=== PATIENT | female | born 1950 | race Caucasian/White ===

== ENCOUNTER → 2016-10-28 | Outpatient (CLI) | payer MEDICARE, BC ==
--- NOTE | 2016-10-28 19:58 | BD ---
EXAMINATION TYPE: MG DEXA axial skeleton. DATE OF EXAM: 10/28/2016 8:41 AM COMPARISON: 2004 CLINICAL HISTORY: 66-year-old female vitamin D deficiency Height: 5'4 Weight: 118 FRAX RISK QUESTIONS: Alcohol (3 or more units per day): no Family History (Parent hip fracture): no Glucocorticoids (More than 3mos): no (Ex: prednisone, prednisolone, methylprednisolone, dexamethasone, and hydrocortisone). History of Fracture in Adulthood: no Secondary Osteoporosis: 1. Type 1 Diabetes: no 2. Hyperthyroidism: no 3. Menopause before 45: no 4. Malnutrition: no 5. Chronic liver disease: no Rheumatoid Arthritis: no Current Tobacco Use: no RISK FACTORS HISTORY OF: Postmenopausal woman: MEDICATIONS: Additional Medications: blood pressure, cholesterol, heart Additional History: vitamin D EXAM MEASUREMENTS: Bone mineral densitometry was performed using the [employer] System. Bone mineral density as measured about the Lumbar spine is: ----- L1-L4(G/cm2):0.964 T Score Values are as follows: ----- L2: -2.8 ----- L3: -1.3 ----- L4: -1.1 ----- L1-L4: -1.8 Bone mineral density has: Decreased -10% since study of: 07/30/2005 Bone mineral density about the R hip (g/cm2): 0.802 Bone mineral density about the L hip (g/cm2): 0.812 T Score values are as follows: -----R Neck: -1.7 -----L Neck: -1.6 -----R Intertrochanter: -2.5 -----L Intertrochanter: -2.4 Bone mineral density has: Decreased -14 .1% since study of: 07/30/2005 IMPRESSION: Osteoporosis as indicated by T score values within the lumbar spine. There is increased risk for fracture and therapy is usually indicated based on age. Rescreen in 1-2 y ears. NOTE: T-SCORE=SD OF THE YOUNG ADULT MEAN.
--- NOTE | 2016-10-29 08:53 | MM ---
Reason for exam: screening (asymptomatic). Last mammogram was performed 1 year and 2 months ago. History: Patient is postmenopausal. Cancelled Left US Needle Biopsy of the left breast, September 08, 2006. Took estrogen for 11 years beginning at age 47. Took progesterone for 11 years beginning at age 47. Physical Findings: A clinical breast exam by your physician is recommended on an annual basis and results should be correlated with mammographic findings. MG 3D Screening Mammo W/Cad Bilateral CC and MLO view(s) were taken. Prior study comparison: August 15, 2015, bilateral MG 3d screening mammo w/cad. August 19, 2014, right breast MG work up mamm w CAD RT. The breast tissue is extremely dense which could obscure a lesion on mammography. Finding: There are typically benign calcifications in the upper outer quadrant of the left breast. ASSESSMENT: Incomplete: need additional imaging evaluation, BI-RAD 0 RECOMMENDATION: Special view mammogram of the left breast. [facility] will attempt to contact patient to return for supplemental views.
== END | disposition home or self-care (01) ==
LOC: RADMAMWWP 08:04
PROVIDERS: ATTEND Internal Medicine Geriatric Medicine
DX: Z12.31 Encounter for screening mammogram for malignant neoplasm of breast (principal); M81.0 Age-related osteoporosis without current pathological fracture; E55.9 Vitamin D deficiency, unspecified
CPT/HCPCS: 77080; 77063; G0202

== ENCOUNTER → 2016-11-01 | Outpatient (CLI) | payer MEDICARE, BC ==
--- NOTE | 2016-11-04 06:57 | MM ---
Reason for exam: additional evaluation requested from abnormal screening. Last mammogram was performed less than 1 month ago. History: Patient is postmenopausal. Cancelled Left US Needle Biopsy of the left breast, September 08, 2006. Took estrogen for 11 years beginning at age 47. Took progesterone for 11 years beginning at age 47. Physical Findings: Nurse did not find any significant physical abnormalities on exam. MG 3D Work Up W/Cad LT LM, CC with magnification, and LM with magnification view(s) were taken of the left breast. Prior study comparison: October 28, 2016, bilateral MG 3d screening mammo w/cad. August 15, 2015, bilateral MG 3d screening mammo w/cad. Benign calcifications stable since 2012. These results were verbally communicated with the patient and result sheet given to the patient on 11/01/16. ASSESSMENT: Benign, BI-RAD 2 RECOMMENDATION: Return to routine screening mammogram schedule for both breasts.
== END | disposition home or self-care (01) ==
LOC: RADMAMWWP 15:38
PROVIDERS: ATTEND Internal Medicine Geriatric Medicine
DX: R92.8 Other abnormal and inconclusive findings on diagnostic imaging of breast (principal)
CPT/HCPCS: G0206; G0279

== ENCOUNTER → 2018-06-24 | Outpatient (CLI) | payer MEDICARE, BC ==
--- NOTE | 2018-06-26 14:06 | MM ---
Reason for exam: screening (asymptomatic). Last mammogram was performed 1 year and 8 months ago. History: Patient is postmenopausal. Cancelled Left US Needle Biopsy of the left breast, September 08, 2006. Took estrogen for 11 years beginning at age 47. Took progesterone for 11 years beginning at age 47. Physical Findings: A clinical breast exam by your physician is recommended on an annual basis and results should be correlated with mammographic findings. MG 3D Screening Mammo W/Cad Bilateral CC and MLO view(s) were taken. Prior study comparison: November 01, 2016, left breast MG 3d work up w/cad LT. October 28, 2016, bilateral MG 3d screening mammo w/cad. The breast tissue is heterogeneously dense. This may lower the sensitivity of mammography. No significant changes when compared with prior studies. ASSESSMENT: Benign, BI-RAD 2 RECOMMENDATION: Routine screening mammogram of both breasts in 1 year.
== END ==
LOC: RADMAMWWP 11:32
PROVIDERS: ATTEND Internal Medicine Geriatric Medicine
DX: Z12.31 Encounter for screening mammogram for malignant neoplasm of breast (principal)
CPT/HCPCS: 77063; 77067

== ENCOUNTER → 2018-11-02 | Outpatient (CLI) | payer MEDICARE, BC ==
--- NOTE | 2018-11-02 13:00 | BD ---
EXAMINATION TYPE: Axial Bone Density DATE OF EXAM: 11/02/2018 CLINICAL HISTORY: Age-related osteoporosis per order. Height: 63.5 Weight: 111 Comparison: Prior DEXA bone scan October 28, 2016 FRAX RISK QUESTIONS: Alcohol (3 or more units per day): no Family History (Parent hip fracture): no Glucocorticoids (More than 3mos): no (Ex: prednisone, prednisolone, methylprednisolone, dexamethasone, and hydrocortisone). History of Fracture in Adulthood: no Secondary Osteoporosis: 1. Type 1 Diabetes: no 2. Hyperthyroidism: no 3. Menopause before 45: no 4. Malnutrition: no 5. Chronic liver disease: no Rheumatoid Arthritis: no Current Tobacco Use: no RISK FACTORS HISTORY OF: Family History of Osteoporosis: mother Active: yes Diet low in dairy products/other sources of calcium: at least one serving a day Postmenopausal woman: yes Take estrogen and/or progesterone medications: not now How long: about age [age] Lost more than 2 inches in height since high school: 61 Frequent falls: no Poor Health: no Hyperparathyroidism: no Adrenal Insufficiency: no MEDICATIONS: Prednisone or other steroids: no Thyroid Medications: no Osteoporosis Medications: yes Which medication: Boniva How Long: a little over one year Additional Medications: blood pressure meds, cholesterol meds, multivitamin Additional History: EXAM MEASUREMENTS: Bone mineral densitometry was performed using the [employer] System. Bone mineral density as measured about the Lumbar spine is: ----- L1-L4(G/cm2): 1.035 T Score Values are as follows: ----- L2: -2.4 ----- L3: -0.7 ----- L4: -0.2 ----- L1-L4: -1.2 Bone mineral density has: Increased 8.0% since study of: 10/28/2016 Bone mineral density about the R hip (g/cm2): 0.805 Bone mineral density about the L hip (g/cm2): 0.803 T Score values are as follows: -----R Neck: -1.7 -----L Neck: -1.7 -----R Total: -1.6 -----L Total: -1.6 Bone mineral density has: Increased1.6 % since study of: 10/28/2016 IMPRESSION: Osteopenia (T Score between -2.5 and -1) remains present. There remains slightly increased risk of fracture and the patient may be considered for treatment. Re-Screen 2-5 years. NOTE: T-SCORE=SD OF THE YOUNG ADULT MEAN.
== END ==
LOC: RADBDWWP 07:54
PROVIDERS: ATTEND Internal Medicine Geriatric Medicine
DX: M85.80 Other specified disorders of bone density and structure, unspecified site (principal)
CPT/HCPCS: 77080

== ENCOUNTER → 2019-05-24 | Outpatient (CLI) | payer MEDICARE, BC ==
--- NOTE | 2019-05-24 11:32 | US ---
EXAMINATION TYPE: US abdomen complete DATE OF EXAM: 05/24/2019 COMPARISON: NONE CLINICAL HISTORY: R19.7 DIARRHEA. Weight loss EXAM MEASUREMENTS: Liver Length: 11.2 cm Gallbladder Wall: 0.2 cm CBD: 0.3 cm Spleen: 10.8 cm Right Kidney: 10.2 x 3.7 x 5.0 cm Left Kidney: 11.4 x 4.3 x 4.9 cm Pancreas: Obscured by bowel gas Liver: wnl Gallbladder: wnl Evidence for sonographic Mcdaniel's sign: No CBD: wnl as visualized, distal portion obscured by bowel gas Spleen: wnl Right Kidney: No hydronephrosis or masses seen Left Kidney: No hydronephrosis or masses seen Upper IVC: wnl Abd Aorta: Atherosclerotic changes visualized. Proximal portion is ectatic The liver is homogenous. The intrahepatic portion of the IVC and proximal abdominal aorta are within normal limits. There is no evidence of cholelithiasis. Common bile duct is unremarkable. The sple en is unremarkable. Kidneys are symmetric and free of hydronephrosis. No renal lesions are seen. IMPRESSION: No suspicious intra-abdominal mass is seen. Pancreas is obscured by bowel gas
== END | disposition home or self-care (01) ==
LOC: RADUSWWP 09:25
PROVIDERS: ATTEND Internal Medicine Geriatric Medicine
DX: R19.7 Diarrhea, unspecified (principal)
CPT/HCPCS: 76700

== ENCOUNTER → 2019-07-15 | Outpatient (CLI) | payer MEDICARE, BC ==
--- NOTE | 2019-07-16 11:37 | MM ---
Reason for exam: screening (asymptomatic). Last mammogram was performed 1 year and 1 month ago. History: Patient is postmenopausal. Cancelled Left US Needle Biopsy of the left breast, September 08, 2006. Took estrogen for 11 years beginning at age 47. Took progesterone for 11 years beginning at age 47. Physical Findings: A clinical breast exam by your physician is recommended on an annual basis and results should be correlated with mammographic findings. MG 3D Screening Mammo W/Cad Bilateral CC, MLO, and XCCL view(s) were taken. Prior study comparison: June 24, 2018, bilateral MG 3d screening mammo w/cad. November 01, 2016, left breast MG 3d work up w/cad LT. The breast tissue is heterogeneously dense. This may lower the sensitivity of mammography. There are benign appearing round calcifications bilaterally. There is no discrete abnormality. ASSESSMENT: Negative, BI-RAD 1 RECOMMENDATION: Routine screening mammogram of both breasts in 1 year.
== END | disposition home or self-care (01) ==
LOC: RADMAMWWP 14:28
PROVIDERS: ATTEND Internal Medicine Geriatric Medicine
DX: Z12.31 Encounter for screening mammogram for malignant neoplasm of breast (principal)
CPT/HCPCS: 77063; 77067

== ENCOUNTER 2019-09-03 07:58 | Day surgery (SDC) | payer MEDICARE, BC ==
[2019-09-01 12:19] VITALS: BMI 18.5
[~2019-09-03 07:58] MED LIST: LACTATED RINGERS 1,000 ML IV SCH; LIDOCAINE 1% 20 ML VIAL (10MG/ML) FOR IV START INTRADERMA PRN
[2019-09-03 08:23] VITALS: RESP 16; TEMP 98.1
[2019-09-03] MEDS ORDERED: PROPOFOL 10 MG/ML 20 ML VIAL IV ONE (08:56)
--- NOTE | 2019-09-03 09:13 | P.PCN ---
Date of Procedure: 09/03/19 Procedure(s) Performed: BRIEF HISTORY: Patient is a 69-year-old pleasant female scheduled for an elective colonoscopy as a part of evaluation of change in bowel habits for the last 6 months duration. She has been having intermittent episodes of diarrhea with bowel movements anywhere from 3-4 a day which are loose to watery in consistency and occasional explosive diarrhea. Her last colonoscopy was 7 years ago. PROCEDURE PERFORMED: Colonoscopy with biopsy. PREOPERATIVE DIAGNOSIS: Change in bowel habits/chronic diarrhea. IV sedation per Anesthesia. PROCEDURE: After informed consent was obtained, the patient, was brought into the endoscopy unit. IV sedation was administered by Anesthesia under continuous monitoring. Digital rectal examination was normal. Initially the Olympus CF-160 flexible video colonoscope was then inserted in the rectum, gradually advanced into the cecum without any difficulty. Careful examination was performed as the scope was gradually being withdrawn. Ileocecal valve and the appendiceal orifice were visualized and appeared normal. Prep was excellent. Mucosa of the cecum, ascending colon, transverse colon, descending colon, sigmoid colon, and rectum appeared normal. Random biopsies were done from ascending and descending colon to rule out microscopic/collagenous colitis Retroflexion was performed in the rectum and no lesions were seen. The patient tolerated the procedure well. IMPRESSION: Normal-appearing colon from rectum to cecum with no evidence of colitis or colorectal neoplasia. RECOMMENDATIONS: Findings of this examination were discussed with the patient as well as a family. She was advised to follow with the biopsy results. She can have a repeat scanning colonoscopy in 10 years. Meantime she was advised to use [id number] Imodium as needed for her symptoms.
[2019-09-03 09:32] VITALS: BP 136/74; PULSE 75
== END 2019-09-03 09:56 | disposition home or self-care (01) ==
LOC: ORWHC2ENDO 07:58
PROVIDERS: ATTEND Internal Medicine Gastroenterology
DX: K52.839 Microscopic colitis, unspecified (principal); R19.4 Change in bowel habit; I10 Essential (primary) hypertension; E78.5 Hyperlipidemia, unspecified; Z79.82 Long term (current) use of aspirin; Z79.899 Other long term (current) drug therapy
CPT/HCPCS: 88305; 88313; 45380; J2704

== ENCOUNTER 2020-11-06 09:24 | Emergency (ER) | payer MEDICARE, BC ==
[2020-11-06 09:38] VITALS: BP 111/74; PULSE 77; RESP 18; TEMP 99
--- NOTE | 2020-11-06 09:52 | ED ---
General Adult HPI - General Chief complaint: Extremity Injury, Lower Stated complaint: fall/foot pain Time Seen by Provider: 11/06/20 09:41 Source: patient, RN notes reviewed Mode of arrival: wheelchair Limitations: physical limitation - History of Present Illness Initial comments: Patient 70-year-old female presented to the emergency room today with chief complaint of pain to the right ankle 2 days. Patient does admit that she went to get up out of the chair when her ankle rolled. She does admit that she's had pain to the lateral aspect over the last 2 days. She does admit that she's been able to bear weight. There has been some swelling. Denies any other complaints or symptoms at this time. - Related Data Home Medications Medication Instructions Recorded Confirmed Aspirin 162 mg PO DAILY 04/11/14 09/01/19 Atorvastatin [Lipitor] 20 mg PO HS 04/11/14 09/01/19 Lisinopril [Prinivil] 5 mg PO HS 04/11/14 09/01/19 Metoprolol Tartrate [Lopressor] 25 mg PO HS 04/11/14 09/01/19 Ibandronate Sodium [Boniva] 150 mg PO QMONTH 09/01/19 09/01/19 Multivitamins, Thera [Multivitamin 1 tab PO DAILY 09/01/19 09/01/19 (formulary)] Hampton-3/Dha/Epa/Fish Oil [Fish Oil 1 each PO DAILY 09/01/19 09/01/19 500 mg Softgel] Allergies Allergy/AdvReac Type Severity Reaction Status Date / Time No Known Allergies Allergy Verified 11/06/20 09:38 Review of Systems ROS Statement: Those systems with pertinent positive or pertinent negative responses have been documented in the HPI. ROS Other: All systems not noted in ROS Statement are negative. Past Medical History Past Medical History: Hyperlipidemia, Hypertension, Myocardial Infarction ([place]) Additional Past Medical History / Comment(s): OCCASIONAL SWELLING IN JEREMI.ANKLES, weight loss. Last Myocardial Infarction Date:: 03/23/12 History of Any Multi-Drug Resistant Organisms: MRSA Date of last positivie culture/infection: 2016 MDRO Source:: armpits Past Surgical History: Heart Catheterization With Stent, Orthopedic Surgery, Tubal Ligation Additional Past Surgical History / Comment(s): HAD HEART CATH WITH 2 STENTS TO LEFT ANTERIOR DESCENDING ARTERY 03/23/12. RIGHT BUNIONECTONY Past Anesthesia/Blood Transfusion Reactions: No Reported Reaction Date of Last Stent Placement:: 03/23/12 Past Psychological History: No Psychological Hx Reported Smoking Status: Never smoker Past Alcohol Use History: Occasional Past Drug Use History: None Reported - Past Family History Mother Family Medical History: Cancer Additional Family Medical History / Comment(s): Skin General Exam - General Exam Comments Initial Comments: General: The patient is awake and alert, in no distress, and does not appear acutely ill. Neck: The neck is supple, there is no tenderness or JVD. Cardiovascular: There is a regular rate and rhythm. No murmur, rub or gallop is appreciated. Respiratory: Lungs are clear to auscultation, respirations are non-labored, breath sounds are equal. No wheezes, stridor, rales, or rhonchi. Musculoskeletal: Patient does have some mild swelling down to the right ankle. Does have tenderness in the ATFL. Mild tenderness over the fourth and fifth proximal metatarsals. Shows good range of motion. Sensations are intact. Pedal pulses 2+. Neurological: A&O x 3. CN II-XII intact, There are no obvious motor or sensory deficits. Coordination appears grossly intact. Speech is normal. Skin: Skin is warm and dry and no rashes or lesions are noted. Psychiatric: Normal mood and affect. Limitations: physical limitation Course Vital Signs 11/06/20 09:35 Temperature 99.0 F Pulse Rate 77 Respiratory 18 Rate Blood Pressure 111/74 O2 Sat by Pulse 97 Oximetry Medical Decision Making - Medical Decision Making Patient's x-ray reviewed and does show a nondisplaced fracture of the proximal fifth metatarsal. Patient has been placed in a posterior short leg OCL splint by myself. Neurovascular was rechecked and intact. Patient does state that she has crutches and walker at home that she can use to stay nonweightbearing is advised follow-up with advised return here to the emergency room symptoms increase worsen or for any other concerns. Disposition Clinical Impression: Foot fracture Disposition: HOME SELF-CARE Condition: Good Instructions (If sedation given, give patient instructions): Foot Fracture in Adults (ED) Additional Instructions: Please leave splint in place and follow-up orthopedics over the next 2 days. Continue to ice elevate the affected area. Return to emergency room for any other concerns. Is patient prescribed a controlled substance at d/c from ED?: No Referrals: Baudilio Boucher MD [Primary Care Provider] - 1-2 days Time of Disposition: 10:59
--- NOTE | 2020-11-06 10:28 | XR ---
EXAMINATION TYPE: XR ankle complete RT DATE OF EXAM: 11/06/2020 COMPARISON: NONE HISTORY: Pain TECHNIQUE: Frontal, lateral and oblique images of the right ankle are obtained. COMPARISON: None. FINDINGS: There is no acute fracture/dislocation evident. The joint spaces appear within normal espino its. Lateral soft tissue swelling noted. IMPRESSION: There is no acute fracture or dislocation seen.
--- NOTE | 2020-11-06 10:29 | XR ---
EXAMINATION TYPE: XR foot complete RT DATE OF EXAM: 11/06/2020 CLINICAL HISTORY: pain TECHNIQUE: Frontal, lateral and oblique images of the right foot are obtained. COMPARISON: None. FINDINGS: Minimally displaced fracture at the base of the fifth metatarsal. The joint spaces appear within normal limits. The overlying soft tissue appears unremarkable. IMPRESSION: Minimally displaced fracture at the base of the fifth metatarsal. ICD 10 closed FRACTURE, INITIAL EVALUATION
== END 2020-11-06 11:16 | disposition home or self-care (01) ==
LOC: EC 09:24
DX: S92.314A Nondisplaced fracture of first metatarsal bone, right foot, initial encounter for closed fracture (principal); I10 Essential (primary) hypertension; E78.5 Hyperlipidemia, unspecified; I25.2 Old myocardial infarction; Z79.899 Other long term (current) drug therapy; Z79.82 Long term (current) use of aspirin; X50.1XXA Overexertion from prolonged static or awkward postures, initial encounter
CPT/HCPCS: 29515; 99283

== ENCOUNTER → 2020-11-28 | Outpatient (CLI) | payer MEDICARE, BC ==
--- NOTE | 2020-11-28 17:54 | BD ---
EXAMINATION TYPE: Axial Bone Density DATE OF EXAM: 11/28/2020 COMPARISON: NONE CLINICAL HISTORY: Height: 5 FT 4 IN Weight: 111 FRAX RISK QUESTIONS: Alcohol (3 or more units per day): NO Family History (Parent hip fracture): UNSURE Glucocorticoids (More than 3mos): NO (Ex: prednisone, prednisolone, methylprednisolone, dexamethasone, and hydrocortisone). History of Fracture in Adulthood: YES Secondary Osteoporosis: 1. Type 1 Diabetes: NO 2. Hyperthyroidism: NO 3. Menopause before 45: NO 4. Malnutrition: NO 5. Chronic liver disease: NO Rheumatoid Arthritis: NO Current Tobacco Use: NO RISK FACTORS HISTORY OF: Family History of Osteoporosis: YES Active: YES Diet low in dairy products/other sources of calcium: NO Postmenopausal woman: LATE 40'S Take estrogen and/or progesterone medications: TOOK HRT FROM AROUND AGE [age] Lost more than 2 inches in height since high school: NO MEDICATIONS: Osteoporosis Medications: YES Which medication: BONIVA How Lon-2 YRS Additional Medications: BONIVA,LISINOPRIL,METOPROLOL Additional History: RT FOOT FX 2020 EXAM MEASUREMENTS: Bone mineral densitometry was performed using the [employer] System. Bone mineral density as measured about the Lumbar spine is: ----- L1-L4(G/cm2): 1.064 T Score Values are as follows: ----- L2: -2.2 ----- L3: -0.5 ----- L4: -0.1 ----- L1-L4: -1.0 Bone mineral density has: INCREASED 1.9 % since study of: 2018 Bone mineral density about the R hip (g/cm2): 0.888 Bone mineral density about the L hip (g/cm2): 0.821 T Score values are as follows: -----R Neck: -1.1 -----L Neck: -1.6 -----R Total: -1.5 -----L Total: -1.5 Bone mineral density has: INCREASED 1.5 % since study of: 2019 IMPRESSION: Osteopenia (T Score between -2.5 and -1). There is slightly increased risk of fracture and the patient may be considered for treatment. Re-Screen 2-5 years. NOTE: T-SCORE=SD OF THE YOUNG ADULT MEAN.
== END | disposition home or self-care (01) ==
LOC: RADBDWWP 08:07
PROVIDERS: ATTEND Internal Medicine Geriatric Medicine
DX: M85.80 Other specified disorders of bone density and structure, unspecified site (principal)
CPT/HCPCS: 77080

== ENCOUNTER → 2021-03-22 | Outpatient (CLI) | payer MEDICARE, BC ==
--- NOTE | 2021-03-22 11:44 | MM ---
Reason for exam: screening (asymptomatic). Last mammogram was performed 1 year and 8 months ago. History: Patient is postmenopausal. Cancelled Left US Needle Biopsy of the left breast, September 08, 2006. Took estrogen for 11 years beginning at age 47. Took progesterone for 11 years beginning at age 47. Physical Findings: A clinical breast exam by your physician is recommended on an annual basis and results should be correlated with mammographic findings. MG 3D Screening Mammo W/Cad Bilateral CC and MLO view(s) were taken. Prior study comparison: July 15, 2019, bilateral MG 3d screening mammo w/cad. June 24, 2018, bilateral MG 3d screening mammo w/cad. The breast tissue is heterogeneously dense. This may lower the sensitivity of mammography. ASSESSMENT: Negative, BI-RAD 1 RECOMMENDATION: Routine screening mammogram of both breasts in 1 year.
== END | disposition home or self-care (01) ==
LOC: RADMAMWWP 07:56
PROVIDERS: ATTEND Internal Medicine Geriatric Medicine
DX: Z12.31 Encounter for screening mammogram for malignant neoplasm of breast (principal); Z78.0 Asymptomatic menopausal state
CPT/HCPCS: 77063; 77067

== ENCOUNTER → 2022-05-28 | Outpatient (CLI) | payer MEDICARE, BC ==
--- NOTE | 2022-05-28 10:54 | MM ---
Reason for Exam: Additional evaluation requested from abnormal screening. Last screening mammogram was performed less than 1 month ago. Patient History: Menarche at age 11. First Full-Term at age 26. Hysterectomy at age 47. Postmenopausal. Estrogen for 11 years from age 47 until age 58. Progesterone for 11 years from age 47 until age 58. 09/08/2006, Cancelled Left US Needle Biopsy on the left side. Risk Values: Lolis 5 year model risk: 2.0%. NCI Lifetime model risk: 4.8%. Prior Study Comparison: 11/01/2016 Left Diagnostic Mammogram, [facility]. 06/24/2018 Bilateral Screening Mammogram, [facility]. 07/15/2019 Bilateral Screening Mammogram, [facility]. 03/22/2021 Bilateral Screening Mammogram, [facility]. 05/22/2022 Bilateral MG 3D screening mammo w/cad, [facility]. Tissue Density: Right: The breast tissue is heterogeneously dense. This may lower the sensitivity of mammography. Analyzed By CAD. Overall Assessment: Negative, BI-RAD 1 Management: Screening Mammogram of both breasts in 1 year. Electronically signed and approved by: Shan Schuster D.O.
== END | disposition home or self-care (01) ==
LOC: RADMAMWWP 09:01
PROVIDERS: ATTEND Internal Medicine Geriatric Medicine
DX: R92.8 Other abnormal and inconclusive findings on diagnostic imaging of breast (principal); Z78.0 Asymptomatic menopausal state
CPT/HCPCS: 77065; G0279; 77061

== ENCOUNTER → 2023-06-05 | Outpatient (CLI) | payer MEDICARE, BC ==
--- NOTE | 2023-06-05 19:49 | BD ---
EXAMINATION TYPE: Axial Bone Density DATE OF EXAM: 06/05/2023 CLINICAL HISTORY: 72 years old Female. ICD-10 CODE: M81.0 Height: 62.8 Weight: 106 FRAX RISK QUESTIONS: Family History (Parent hip fracture): yes History of Fracture in Adulthood: yes RISK FACTORS HISTORY OF: Family History of Osteoporosis: yes Diet low in dairy products/other sources of calcium: yes Postmenopausal woman: 46 yrs old Take estrogen and/or progesterone medications: for 11 yrs in the past. Hyperparathyroidism: no Adrenal Insufficiency: no MEDICATIONS: Osteoporosis Medications: yes, boniva...3-4 yrs has stopped taking now. Additional Medications: bp meds, statin for cholesterol, vit d, aspirin, Additional History: adult foot fracture, cholesterol, hypertension, osteopenia, EXAM MEASUREMENTS: Bone mineral densitometry was performed using the [employer] System. Bone mineral density as measured about the Lumbar spine is: ----- L1-L4(G/cm2): 0.937 T Score Values are as follows: ----- L1: -2.5 ----- L2: -2.7 ----- L3: -0.7 ----- L4: -2.6 ----- L1-L4: -2.0 Z Score Values are as follows: ----- L1: -0.2 ----- L2: -0.4 ----- L3: 1.6 ----- L4: -0.3 ----- L1-L4: 0.3 Bone mineral density has: Decreased -11.9% since study of: 11.28.2020 Bone mineral density about the R hip (g/cm2): 0.774 Bone mineral density about the L hip (g/cm2): 0.770 T Score values are as follows: -----R Neck: -2.0 -----L Neck: -2.0 -----R Total: -1.9 -----L Total: -1.9 Z Score values are as follows: -----R Neck: 0.3 -----L Neck: 0.3 -----R Total: 0.3 -----L Total: 0.2 Bone mineral density has: Decreased -5.4% since study of: 11.28.2020 FRAX%s: The graph provided illustrates a 29.3% chance for a major osteoporotic fx and a 17.6% chance for the hips probability for fx in 10 years time. IMPRESSION: Osteopenia (T Score between -2.5 and -1). There is slightly increased risk of fracture and the patient may be considered for treatment. Re-Screen 2-5 years. NOTE: T-SCORE=SD OF THE YOUNG ADULT MEAN.
--- NOTE | 2023-06-06 08:51 | MM ---
Reason for Exam: Screening (asymptomatic). Last mammogram was performed 1 year(s) and 1 month(s) ago. Patient History: Menarche at age 11. First Full-Term at age 26. Hysterectomy at age 47. Postmenopausal. Patient has history of breast feeding. Estrogen for 11 years from age 47 until age 58. Progesterone for 11 years from age 47 until age 58. 09/08/2006, Cancelled Left US Needle Biopsy on the left side. Risk Values: Lolis 5 year model risk: 2.0%. NCI Lifetime model risk: 4.5%. Prior Study Comparison: 03/22/2021 Bilateral Screening Mammogram, [facility]. 05/22/2022 Bilateral MG 3D screening mammo w/cad, [facility]. 05/28/2022 Right MG 3D work up w/cad RT, [facility]. Tissue Density: The breast tissue is heterogeneously dense. This may lower the sensitivity of mammography. Findings: Analyzed By CAD. Groups consultations right breast lateral aspect 8.9 cm nipple and 4.1 cm nipple in the lateral and posterior nipple line respectively. Not well appreciated on MLO view. Left breast There is no suspicious group of microcalcifications or new suspicious mass. Overall Assessment: Incomplete: need additional imaging evaluation, BI-RAD 0 Management: Diagnostic Mammogram of the right breast. [facility] will attempt to contact patient to return for supplemental views and ultrasound if indicated. Patient should continue monthly self-breast exams. A clinical breast exam by your physician is recommended on an annual basis. This exam should not preclude additional follow-up of suspicious palpable abnormalities. Note on Lolis scores and lifetime risk: 1. A Lolis score greater than 3% is considered moderate risk. If this is the case, consider specialist referral to assess eligibility for a risk reducing agent. 2. If overall lifetime risk for the development of breast cancer is 20% or higher, the patient may qualify for future screening with alternating mammogram and breast MRI. Electronically signed and approved by: Kalpesh Liz DO
== END | disposition home or self-care (01) ==
LOC: RADMAMWWP 08:36
PROVIDERS: ATTEND Internal Medicine Geriatric Medicine
DX: Z12.31 Encounter for screening mammogram for malignant neoplasm of breast (principal); M81.0 Age-related osteoporosis without current pathological fracture; M85.89 Other specified disorders of bone density and structure, multiple sites; Z78.0 Asymptomatic menopausal state
CPT/HCPCS: 77063; 77067; 77080

== ENCOUNTER → 2023-06-18 | Outpatient (CLI) | payer MEDICARE, BC ==
--- NOTE | 2023-06-18 09:59 | MM ---
Reason for Exam: Additional evaluation requested from abnormal screening. Last screening mammogram was performed less than 1 month ago. Patient History: Menarche at age 11. First Full-Term at age 26. Hysterectomy at age 47. Postmenopausal. Patient has history of breast feeding. Estrogen for 11 years from age 47 until age 58. Progesterone for 11 years from age 47 until age 58. 09/08/2006, Cancelled Left US Needle Biopsy on the left side. Risk Values: Lolis 5 year model risk: 2.0%. NCI Lifetime model risk: 4.5%. Tissue Density: Right: The breast tissue is heterogeneously dense. This may lower the sensitivity of mammography. Analyzed By CAD. Overall Assessment: Suspicious, BI-RAD 4 Management: Stereotactic Core Biopsy Electronically signed and approved by: Josue Mims D.O. Radiologis
== END | disposition home or self-care (01) ==
LOC: RADMAMWWP 08:26
PROVIDERS: ATTEND Internal Medicine Geriatric Medicine
DX: R92.8 Other abnormal and inconclusive findings on diagnostic imaging of breast (principal); Z78.0 Asymptomatic menopausal state
CPT/HCPCS: 77065; G0279; 77061

== ENCOUNTER → 2023-07-17 | Day surgery (SDC) | payer MEDICARE, BC ==
[2023-07-17 07:39] VITALS: RESP 16; TEMP 97.6
--- NOTE | 2023-07-17 08:16 | P.GSHP ---
History of Present Illness H&P Date: 07/17/23 Chief Complaint: Abnormal right breast mammogram Isabel is a 73-year-old white female seen in consultation for Dr. Boucher regarding an abnormal right breast mammogram. She had a bilateral screening mammogram performed on 97 this revealed some questionable lesions in the right breast and a diagnostic mammogram was recommended. No lesions of concern were noted in the left breast. [place] [address]. This revealed a small group of calcifications in the upper outer right breast. Additionally a small group of calcifications have been present previously in the upper outer posterior right breast. The new group of calcifications were felt to be suspicious and stereotactic core biopsy was recommended. She does not feel any new lumps masses or notches of concern in either breast. She has never had any breast biopsies or surgery on her breast. She has not had any recent trauma or infection in her breast. Caffeine: 1 cup/day nicotine:never smoker chocolate: daily BCP: used for about 5 years hormones: none Family History: maternal grandmother: "female" cancer Hormonal History: menarche: 11 , breast fed: no, age at first : 35 menopause: 42 Surgical History: 2 cardiac stints tubaligation foot surgery Medical History: baby aspirin 2 daily vitamin D metaprolol lisonipril statin [place] in past Social History: nicotine: none alcohol: occasional drugs: none - Constitutional Constitutional: Denies chills, Denies fever - EENT Eyes: denies blurred vision, denies pain Ears: deny: decreased hearing, tinnitus Ears, nose, mouth and throat: Denies headache, Denies sore throat - Breasts Breasts: bilateral: as per HPI - Cardiovascular Cardiovascular: Reports shortness of breath, Denies chest pain - Respiratory Respiratory: Denies cough, Denies 7 - Gastrointestinal Gastrointestinal: Denies abdominal pain, Denies diarrhea, Denies nausea, Denies vomiting - Genitourinary (Female) Genitourinary: Denies dysuria, Denies hematuria - Menstruation Menstruation: Reports postmenopausal - Musculoskeletal Musculoskeletal: Denies myalgias - Integumentary Integumentary: Denies pruritus, Denies rash - Neurological Neurological: Denies numbness, Denies weakness - Psychiatric Psychiatric: Denies anxiety, Denies depression - Endocrine Endocrine: Denies fatigue, Denies weight change - Hematologic/Lymphatic Comment: none - Allergic/Immunologic Allergic/Immunologic: Reports as per HPI Past Medical History Past Medical History: Hyperlipidemia, Hypertension, Myocardial Infarction ([place]) Additional Past Medical History / Comment(s): OCCASIONAL SWELLING IN JEREMI.ANKLES, weight loss. Last Myocardial Infarction Date:: 03/23/12 History of Any Multi-Drug Resistant Organisms: MRSA Date of last positivie culture/infection: 2016 MDRO Source:: armpits Past Surgical History: Heart Catheterization With Stent, Orthopedic Surgery, Tubal Ligation Additional Past Surgical History / Comment(s): HAD HEART CATH WITH 2 STENTS TO LEFT ANTERIOR DESCENDING ARTERY 03/23/12. RIGHT BUNIONECTONY Past Anesthesia/Blood Transfusion Reactions: No Reported Reaction Date of Last Stent Placement:: 03/23/12 Past Psychological History: No Psychological Hx Reported Smoking Status: Never smoker Past Alcohol Use History: Occasional Past Drug Use History: None Reported - Past Family History Mother Family Medical History: Cancer Additional Family Medical History / Comment(s): Skin Medications and Allergies Home Medications Medication Instructions Recorded Confirmed Type Aspirin 81 mg PO DAILY 04/11/14 07/17/23 History Atorvastatin [Lipitor] 20 mg PO HS 04/11/14 07/17/23 History Lisinopril [Prinivil] 5 mg PO HS 04/11/14 07/17/23 History Metoprolol Tartrate [Lopressor] 25 mg PO HS 04/11/14 07/17/23 History Multivitamins, Thera [Multivitamin 1 tab PO DAILY 09/01/19 07/17/23 History (formulary)] Allergies Allergy/AdvReac Type Severity Reaction Status Date / Time No Known Allergies Allergy Verified 07/17/23 07:40 Surgical - Exam Vital Signs Temp Pulse Resp BP 97.6 F 78 16 114/75 07/17/23 07:24 07/17/23 07:24 07/17/23 07:24 07/17/23 07:24 - General no distress - Eyes normal ocular movement - ENT no hearing loss - Neck trachea midline - Respiratory normal respiratory effort, clear to auscultation - Cardiovascular Heart Sounds: normal: S1, S2 - Abdomen Abdomen: soft, non tender, no guarding, no rigid, no rebound - Integumentary normal turgor - Neurologic no disoriented, no combative - Musculoskeletal normal gait, normal posture - Psychiatric oriented to time, oriented to person, oriented to place, speech is normal, memory intact Breast Exam: BRA: 36B Inspection: 36B Patient: Right breast: Multi-positional exam no dominant masses or nodules of concern Right axilla: No adenopathy of concern Left breast: Multiple position with exam fibrocystic changes no dominant masses or nodules of concern Left axilla: No adenopathy of concern Results Mammogram reviewed with Dr. Liz from radiology; faint microcalcifications right breast seen only on CC view Assessment and Plan Assessment: Impression: Radiographic abnormality right breast, microcalcifications of concern seen only on CC view second areas of faint microcalcifications which were there previously no lesions of concern in left breast Cardiac history Plan: Attempt at stereotactic core biopsy right breast new group of microcalcifications Risk and benefits of the procedure are discussed with the patient. Risks include but are not limited to bleeding, infection, reaction to the anesthetic. If the calcifications cannot be seen well then we will do a repeat 6 month mammogram. If the biopsy were to be discordant and needle local excision may be necessary in the future. Patient understands and wishes to proceed. CC: Dr. Boucher
[2023-07-17 09:15] VITALS: BP 154/84; PULSE 73
--- NOTE | 2023-07-18 12:44 | MM ---
Date of Procedure: 07/17/23 Preoperative Diagnosis: Microcalcifications of concern right breast Postoperative Diagnosis: Same Procedure(s) Performed: Right breast stereotactic core biopsy Anesthesia: local Surgeon: Estefani Russo Pathology: other (Breast tissue/radiograph of specimen reveals microcalcifications) Condition: stable Disposition: same day Indications for Procedure: New onset microcalcifications of concern right breast Operative Findings: Radiograph of the specimen reveals microcalcifications Description of Procedure: The patient is a 73-year-old white female who underwent a routine screening mammogram was noted to have microcalcifications of concern in her right breast. These were new and a stereotactic core biopsy was recommended. Nothing was felt on examination. Risks and benefits of the procedure were discussed with the patient and she wished to proceed. The patient was brought to the stereotactic core biopsy room. She was positioned in the stereo upright chair. A party plan sales host/hostess film was obtained. The area of concern was identified. This was reviewed with radiology. The calcifications were very faint but it was felt the area of concern was identified. The lesion was targeted. The breast was prepped using chlorhexidine. 20 mL of 1% lidocaine were used to anesthetize the area of concern. A 9-gauge vacuum- assisted Petit biopsy needle was driven to the correct coordinates. A prefire film was obtained. The needle was noted to be in the correct location. The needle was fired. 24 specimens were obtained. Radiograph of the specimens revealed microcalcifications. It was felt that the area of concern been adequately sampled. A secure veronica bowtie clip was left in place. This appeared to be in the correct location. The patient tolerated the procedure in stable condition. Specimen is sent to pathology. The patient will follow-up with Dr. Chiang next week. SOWMYA
--- NOTE | 2023-07-18 14:02 | MM ---
Date of Procedure: 07/17/23 Preoperative Diagnosis: Microcalcifications of concern right breast Postoperative Diagnosis: Same Procedure(s) Performed: Right breast stereotactic core biopsy Anesthesia: local Surgeon: Estefani Russo Pathology: other (Breast tissue/radiograph of specimen reveals microcalcifications) Condition: stable Disposition: same day Indications for Procedure: New onset microcalcifications of concern right breast Operative Findings: Radiograph of the specimen reveals microcalcifications Description of Procedure: The patient is a 73-year-old white female who underwent a routine screening mammogram was noted to have microcalcifications of concern in her right breast. These were new and a stereotactic core biopsy was recommended. Nothing was felt on examination. Risks and benefits of the procedure were discussed with the patient and she wished to proceed. The patient was brought to the stereotactic core biopsy room. She was positioned in the stereo upright chair. A bevel face stoner and polisher film was obtained. The area of concern was identified. This was reviewed with radiology. The calcifications were very faint that this was felt to be the area of concern. The lesion was targeted. The breast was prepped using chlorhexidine. 20 mL of 1% lidocaine were used to anesthetize the area of concern. A 9-gauge vacuum-assisted Petit biopsy needle was driven to the correct coordinates. A prefire film was obtained. The needle was noted to be in the correct location. The needle was fired. 24 specimens were obtained. Radiograph of the specimens revealed microcalcifications. It was felt that the area of concern about been adequately sampled. A secure veronica bowtie clip was left in place. This appeared to be in the correct location. The patient tolerated the procedure in stable condition. Specimen is sent to pathology. The patient will follow-up with Dr. Chiang next week. SOWMYA
== END ==
LOC: RADMAMWWP 07:12
PROVIDERS: ATTEND Surgery
DX: R92.8 Other abnormal and inconclusive findings on diagnostic imaging of breast (principal); I25.2 Old myocardial infarction; I10 Essential (primary) hypertension; F10.90 Alcohol use, unspecified, uncomplicated; E78.5 Hyperlipidemia, unspecified; Z98.51 Tubal ligation status; Z98.890 Other specified postprocedural states; Z79.82 Long term (current) use of aspirin; Z79.899 Other long term (current) drug therapy
CPT/HCPCS: 88305; 19081; A4648; J2001

== ENCOUNTER → 2023-07-17 | Outpatient (CLI) | payer MEDICARE, BC ==
[2023-07-17 07:59] VITALS: BP 127/87; PULSE 77; RESP 8; TEMP 98
--- NOTE | 2023-07-17 08:55 | P.PCN ---
Date of Procedure: 07/17/23 Preoperative Diagnosis: Microcalcifications of concern right breast Postoperative Diagnosis: Same Procedure(s) Performed: Right breast stereotactic core biopsy Anesthesia: local Surgeon: Estefani Russo Pathology: other (Breast tissue/radiograph of specimen reveals microcalcifications) Condition: stable Disposition: same day Indications for Procedure: New onset microcalcifications of concern right breast Operative Findings: Radiograph of the specimen reveals microcalcifications Description of Procedure: The patient is a 73-year-old white female who underwent a routine screening mammogram was noted to have microcalcifications of concern in her right breast. These were new and a stereotactic core biopsy was recommended. Nothing was felt on examination. Risks and benefits of the procedure were discussed with the patient and she wished to proceed. The patient was brought to the stereotactic core biopsy room. She was positioned in the stereo upright chair. A manager drug safety film was obtained. The area of concern was identified. This was reviewed with radiology. The calcifications were very faint that this was felt to be the area of concern. The lesion was targeted. The breast was prepped using chlorhexidine. 20 mL of 1% lidocaine were used to anesthetize the area of concern. A 9-gauge vacuum-assisted Petit biopsy needle was driven to the correct coordinates. A prefire film was obtained. The needle was noted to be in the correct location. The needle was fired. 24 specimens were obtained. Radiograph of the specimens revealed microcalcifications. It was felt that the area of concern about been adequately sampled. A secure veronica bowtie clip was left in place. This appeared to be in the correct location. The patient tolerated the procedure in stable condition. Specimen is sent to pathology. The patient will follow-up with Dr. Chiang next week.
== END ==
LOC: WWCWWP 07:13
PROVIDERS: ATTEND Surgery
DX: R92.8 Other abnormal and inconclusive findings on diagnostic imaging of breast (principal); E78.5 Hyperlipidemia, unspecified; I10 Essential (primary) hypertension; I25.2 Old myocardial infarction; Z79.899 Other long term (current) drug therapy; Z79.82 Long term (current) use of aspirin

== ENCOUNTER → 2023-07-23 | Outpatient (CLI) | payer MEDICARE, BC ==
[2023-07-23 08:42] VITALS: BP 134/83; PULSE 65; RESP 16; TEMP 97.8
--- NOTE | 2023-07-23 08:44 | P.PN ---
Subjective Progress Note Date: 07/23/23 Principal diagnosis: fibrocystic breast changes Isabel is a 73-year-old white female seen in consultation for Dr. Boucher regarding an abnormal right breast mammogram. She had a bilateral screening mammogram performed on 9722 this revealed some questionable lesions in the right breast and a diagnostic mammogram was recommended. No lesions of concern were noted in the left breast. A right breast diagnostic mammogram was performed on . This revealed a small group of calcifications in the upper outer right breast. Additionally a small group of calcifications have been present previously in the upper outer posterior right breast. The new group of calcifications were felt to be suspicious and stereotactic core biopsy was recommended. She does not feel any new lumps masses or notches of concern in either breast. She has never had any breast biopsies or surgery on her breast. She has not had any recent trauma or infection in her breast. The patient on 07-17-23 underwent a stero biopsy of the right breast. Her pathology showed fibrocystic changes which were benign concordant. This was reviewed by Dr. Pitts. Caffeine: 1 cup/day nicotine:never smoker chocolate: daily BCP: used for about 5 years hormones: none Family History: maternal grandmother: "female" cancer Hormonal History: menarche: 11 , breast fed: no, age at first : 35 menopause: 42 Surgical History: 2 cardiac stints tubaligation foot surgery Medical History: baby aspirin 2 daily vitamin D metaprolol lisonipril statin [place] in past Social History: nicotine: none alcohol: occasional drugs: none - Constitutional Constitutional: Denies chills, Denies fever - EENT Eyes: denies blurred vision, denies pain Ears: deny: decreased hearing, tinnitus Ears, nose, mouth and throat: Denies headache, Denies sore throat - Breasts Breasts: bilateral: as per HPI - Cardiovascular Cardiovascular: Reports shortness of breath, Denies chest pain - Respiratory Respiratory: Denies cough, Denies 7 - Gastrointestinal Gastrointestinal: Denies abdominal pain, Denies diarrhea, Denies nausea, Denies vomiting - Genitourinary (Female) Genitourinary: Denies dysuria, Denies hematuria - Menstruation Menstruation: Reports postmenopausal - Musculoskeletal Musculoskeletal: Denies myalgias - Integumentary Integumentary: Denies pruritus, Denies rash - Neurological Neurological: Denies numbness, Denies weakness - Psychiatric Psychiatric: Denies anxiety, Denies depression - Endocrine Endocrine: Denies fatigue, Denies weight change - Hematologic/Lymphatic Comment: none - Allergic/Immunologic Allergic/Immunologic: Reports as per HPI Past Medical History Past Medical History: Hyperlipidemia, Hypertension, Myocardial Infarction ([place]) Additional Past Medical History / Comment(s): OCCASIONAL SWELLING IN JEREMI.ANKLES, weight loss. Last Myocardial Infarction Date:: 03/23/12 History of Any Multi-Drug Resistant Organisms: MRSA Date of last positivie culture/infection: 2016 MDRO Source:: armpits Past Surgical History: Heart Catheterization With Stent, Orthopedic Surgery, Tubal Ligation Additional Past Surgical History / Comment(s): HAD HEART CATH WITH 2 STENTS TO LEFT ANTERIOR DESCENDING ARTERY 03/23/12. RIGHT BUNIONECTONY Past Anesthesia/Blood Transfusion Reactions: No Reported Reaction Date of Last Stent Placement:: 03/23/12 Past Psychological History: No Psychological Hx Reported Smoking Status: Never smoker Past Alcohol Use History: Occasional Past Drug Use History: None Reported - Past Family History Mother Family Medical History: Cancer Additional Family Medical History / Comment(s): Skin Medications and Allergies Home Medications Medication Instructions Recorded Confirmed Type Aspirin 81 mg PO DAILY 04/11/14 07/17/23 History Atorvastatin [Lipitor] 20 mg PO HS 04/11/14 07/17/23 History Lisinopril [Prinivil] 5 mg PO HS 04/11/14 07/17/23 History Metoprolol Tartrate [Lopressor] 25 mg PO HS 04/11/14 07/17/23 History Multivitamins, Thera [Multivitamin 1 tab PO DAILY 09/01/19 07/17/23 History (formulary)] Allergies Allergy/AdvReac Type Severity Reaction Status Date / Time No Known Allergies Allergy Verified 07/17/23 07:40 Objective - Vital Signs Vital signs: Vital Signs Temp 97.8 F 07/23/23 08:33 Pulse 65 07/23/23 08:33 Resp 16 07/23/23 08:33 BP 134/83 07/23/23 08:33 Pulse Ox 98 07/23/23 08:33 FiO2 Intake & Output 07/22/23 07/23/23 07/23/23 18:59 06:59 18:59 Weight 49.895 kg - Constitutional General appearance: Present: cooperative - EENT Eyes: Present: EOMI ENT: Present: hearing grossly normal - Neck Neck: Present: normal ROM - Respiratory Respiratory: bilateral: CTA - Cardiovascular Heart sounds: normal: S1, S2 - Musculoskeletal Musculoskeletal: Present: gait normal - Psychiatric Psychiatric: Present: A&O x's 3, appropriate affect, intact judgment & insight - Additional findings Additional findings: Breast Exam: Right breast biopsy site of ecchymosis, no hematoma no evidence of infection Assessment and Plan Assessment: Impression: Benign concordant right breast stereotactic core biopsy [id number] Plan: Repeat right breast mammogram in 6 months with physician exam at that time CC: Dr. Boucher
== END ==
LOC: WWCWWP 08:23
PROVIDERS: ATTEND Surgery
DX: R92.8 Other abnormal and inconclusive findings on diagnostic imaging of breast (principal); N60.11 Diffuse cystic mastopathy of right breast; E78.5 Hyperlipidemia, unspecified; I10 Essential (primary) hypertension; I25.2 Old myocardial infarction; Z79.899 Other long term (current) drug therapy

== ENCOUNTER → 2024-02-10 | Outpatient (CLI) | payer MEDICARE, BC ==
--- NOTE | 2024-02-10 10:07 | MM ---
Reason for Exam: Follow-up at short interval from prior study. Last screening mammogram was performed 8 month(s) ago. Patient History: Menarche at age 11. First Full-Term at age 26. Hysterectomy at age 47. Postmenopausal. Patient has history of breast feeding. Estrogen for 11 years from age 47 until age 58. Progesterone for 11 years from age 47 until age 58. 07/17/2023, Benign MG stereo VAD BX RT on the right side. 09/08/2006, Cancelled Left US Needle Biopsy on the left side. Risk Values: Lolis 5 year model risk: 2.3%. NCI Lifetime model risk: 5.0%. Prior Study Comparison: 05/28/2022 Right MG 3D work up w/cad RT, [facility]. 06/05/2023 Bilateral MG 3D screening mammo w/cad, [facility]. 06/18/2023 Right MG 3D work up w/cad RT, [facility]. Tissue Density: Right: The breasts are heterogeneously dense, which may obscure small masses. Findings: Analyzed By CAD. Microclip upper outer quadrant right breast from prior biopsy. Asymmetric density posterior superior aspect is unchanged. No significant change from prior exams. Overall Assessment: Benign, BI-RAD 2 Management: Screening Mammogram of both breasts in 6 months. Back on schedule. Results were given to the patient verbally at the time of exam. Patient should continue monthly self-breast exams. A clinical breast exam by your physician is recommended on an annual basis. This exam should not preclude additional follow-up of suspicious palpable abnormalities. Note on Lolis scores and lifetime risk: 1. A Lolis score greater than 3% is considered moderate risk. If this is the case, consider specialist referral to assess eligibility for a risk reducing agent. 2. If overall lifetime risk for the development of breast cancer is 20% or higher, the patient may qualify for future screening with alternating mammogram and breast MRI. Electronically signed and approved by: Elpidio Jimenez M.D. Radiologist
== END | disposition home or self-care (01) ==
LOC: RADMAMWWP 09:18
PROVIDERS: ATTEND Surgery
DX: R92.8 Other abnormal and inconclusive findings on diagnostic imaging of breast (principal); Z78.0 Asymptomatic menopausal state
CPT/HCPCS: 77065; G0279; 77061

== ENCOUNTER → 2024-02-13 | Outpatient (CLI) | payer MEDICARE, BC ==
--- NOTE | 2024-02-13 10:33 | P.PN ---
Subjective Progress Note Date: 02/13/24 02-13-24 Principal diagnosis: fibrocystic breast changes Isabel is a 73-year-old white female seen in consultation for Dr. Boucher regarding an abnormal right breast mammogram. She had a bilateral screening mammogram performed on 9722 this revealed some questionable lesions in the right breast and a diagnostic mammogram was recommended. No lesions of concern were noted in the left breast. A right breast diagnostic mammogram was performed on . This revealed a small group of calcifications in the upper outer right breast. Additionally a small group of calcifications have been present previously in the upper outer posterior right breast. The new group of calcifications were felt to be suspicious and stereotactic core biopsy was recommended. She does not feel any new lumps masses or notches of concern in either breast. She has never had any breast biopsies or surgery on her breast. She has not had any recent trauma or infection in her breast. The patient on 07-17-23 underwent a stero biopsy of the right breast. Her pathology showed fibrocystic changes which were benign concordant. This was reviewed by Dr. Pitts. The patient had a repeat right breast mammogram on 02-10-2024, this was benign BI-RADS 2. This was personally reviewed. The patient is recommended to have a bilateral mammogram back on schedule May 2024. She is not complaining of any new lumps masses or nodules of concern in either breast. Caffeine: 1 cup/day nicotine:never smoker chocolate: daily BCP: used for about 5 years hormones: none Family History: maternal grandmother: "female" cancer Hormonal History: menarche: 11 , breast fed: no, age at first : 35 menopause: 42 Surgical History: 2 cardiac stints tubaligation foot surgery Medical History: baby aspirin 2 daily vitamin D metaprolol lisonipril statin [place] in past Social History: nicotine: none alcohol: occasional drugs: none - Constitutional Constitutional: Denies chills, Denies fever - EENT Eyes: denies blurred vision, denies pain Ears: deny: decreased hearing, tinnitus Ears, nose, mouth and throat: Denies headache, Denies sore throat - Breasts Breasts: bilateral: as per HPI - Cardiovascular Cardiovascular: Reports shortness of breath, Denies chest pain - Respiratory Respiratory: Denies cough - Gastrointestinal Gastrointestinal: Denies abdominal pain, Denies diarrhea, Denies nausea, Denies vomiting - Genitourinary (Female) Genitourinary: Denies dysuria, Denies hematuria - Menstruation Menstruation: Reports postmenopausal - Musculoskeletal Musculoskeletal: Denies myalgias - Integumentary Integumentary: Denies pruritus, Denies rash - Neurological Neurological: Denies numbness, Denies weakness - Psychiatric Psychiatric: Denies anxiety, Denies depression - Endocrine Endocrine: Denies fatigue, Denies weight change - Hematologic/Lymphatic Comment: none - Allergic/Immunologic Allergic/Immunologic: Reports as per HPI Past Medical History Past Medical History: Hyperlipidemia, Hypertension, Myocardial Infarction ([place]) Additional Past Medical History / Comment(s): OCCASIONAL SWELLING IN JEREMI.ANKLES, weight loss. Last Myocardial Infarction Date:: 03/23/12 History of Any Multi-Drug Resistant Organisms: MRSA Date of last positivie culture/infection: 2016 MDRO Source:: armpits Past Surgical History: Heart Catheterization With Stent, Orthopedic Surgery, Tubal Ligation Additional Past Surgical History / Comment(s): HAD HEART CATH WITH 2 STENTS TO LEFT ANTERIOR DESCENDING ARTERY 03/23/12. RIGHT BUNIONECTONY Past Anesthesia/Blood Transfusion Reactions: No Reported Reaction Date of Last Stent Placement:: 03/23/12 Past Psychological History: No Psychological Hx Reported Smoking Status: Never smoker Past Alcohol Use History: Occasional Past Drug Use History: None Reported - Past Family History Mother Family Medical History: Cancer Additional Family Medical History / Comment(s): Skin Medications and Allergies Home Medications Medication Instructions Recorded Confirmed Type Aspirin 81 mg PO DAILY 04/11/14 07/17/23 History Atorvastatin [Lipitor] 20 mg PO HS 04/11/14 07/17/23 History Lisinopril [Prinivil] 5 mg PO HS 04/11/14 07/17/23 History Metoprolol Tartrate [Lopressor] 25 mg PO HS 04/11/14 07/17/23 History Multivitamins, Thera [Multivitamin 1 tab PO DAILY 09/01/19 07/17/23 History (formulary)] Allergies Allergy/AdvReac Type Severity Reaction Status Date / Time No Known Allergies Allergy Verified 07/17/23 07:40 Objective - Constitutional General appearance: Present: cooperative - EENT Eyes: Present: EOMI ENT: Present: hearing grossly normal - Neck Neck: Present: normal ROM - Respiratory Respiratory: bilateral: CTA - Cardiovascular Heart sounds: normal: S1, S2 - Integumentary Integumentary: Present: normal turgor - Musculoskeletal Musculoskeletal: Present: gait normal - Psychiatric Psychiatric: Present: A&O x's 3, appropriate affect, intact judgment & insight - Additional findings Additional findings: Breast Exam: BRA: 36B inspection: bilateral grade 2 ptosis Palpation: Right breast: Multi positional exam fibrocystic changes no dominant masses or nodules of concern Right axilla: No adenopathy of concern Left breast: Multi positional exam fibrocystic changes no dominant masses or nodules of concern Left axilla: No adenopathy of concern Assessment and Plan Assessment: Impression: Benign concordant right breast stereotactic core biopsy [id number] right breast mammogram on 02-10-24 BIRAD 2 Plan: Repeat bilateral mammogram in 6 months with physician exam at that time, May 2024 follow up sooner any concerns CC: Dr. Boucher
[2024-02-13 11:28] VITALS: BP 123/74; PULSE 60; RESP 17; TEMP 97.7
== END ==
LOC: WWCWWP 10:14
PROVIDERS: ATTEND Surgery
DX: R92.0 Mammographic microcalcification found on diagnostic imaging of breast (principal); R92.8 Other abnormal and inconclusive findings on diagnostic imaging of breast; N60.11 Diffuse cystic mastopathy of right breast; N60.12 Diffuse cystic mastopathy of left breast

== ENCOUNTER → 2024-06-07 | Outpatient (CLI) | payer MEDICARE, BC ==
--- NOTE | 2024-06-07 18:56 | MM ---
Reason for Exam: Screening (asymptomatic). Last screening mammogram was performed 12 month(s) ago. Patient History: Menarche at age 11. First Full-Term at age 26. Left ovary removed at age 47. Right ovary removed at age 47. Hysterectomy at age 47. Postmenopausal. Estrogen for 11 years from age 47 until age 58. Progesterone for 11 years from age 47 until age 58. 07/17/2023, Benign MG stereo VAD BX RT on the right side. 09/08/2006, Cancelled Left US Needle Biopsy on the left side. Risk Values: Lolis 5 year model risk: 2.3%. NCI Lifetime model risk: 5.0%. Prior Study Comparison: 11/01/2016 Left Diagnostic Mammogram, [facility]. 06/24/2018 Bilateral Screening Mammogram, [facility]. 07/15/2019 Bilateral Screening Mammogram, [facility]. 03/22/2021 Bilateral Screening Mammogram, [facility]. 05/22/2022 Bilateral MG 3D screening mammo w/cad, [facility]. 05/28/2022 Right MG 3D work up w/cad RT, [facility]. 06/05/2023 Bilateral MG 3D screening mammo w/cad, [facility]. 06/18/2023 Right MG 3D work up w/cad RT, [facility]. 02/10/2024 Right MG 3D diag mammo w/cad RT, [facility]. Tissue Density: The breasts are heterogeneously dense, which may obscure small masses. Findings: Analyzed By CAD. Microclip right breast from prior biopsy. There is no suspicious group of microcalcifications or new suspicious mass in either breast. Overall Assessment: Benign, BI-RAD 2 Management: Screening Mammogram of both breasts in 1 year. . Patient should continue monthly self-breast exams. A clinical breast exam by your physician is recommended on an annual basis. This exam should not preclude additional follow-up of suspicious palpable abnormalities. Note on Lolis scores and lifetime risk: 1. A Lolis score greater than 3% is considered moderate risk. If this is the case, consider specialist referral to assess eligibility for a risk reducing agent. 2. If overall lifetime risk for the development of breast cancer is 20% or higher, the patient may qualify for future screening with alternating mammogram and breast MRI. Electronically signed and approved by: Elpidio Jimenez M.D. Radiologist
== END | disposition home or self-care (01) ==
LOC: RADMAMWWP 09:32
PROVIDERS: ATTEND Surgery
DX: Z12.31 Encounter for screening mammogram for malignant neoplasm of breast
CPT/HCPCS: 77063; 77067

== ENCOUNTER → 2024-06-10 | Outpatient (CLI) | payer MEDICARE, BC ==
[2024-06-10 12:50] VITALS: BP 147/80; PULSE 58; RESP 16; TEMP 97.8
--- NOTE | 2024-06-10 12:57 | P.PN ---
Subjective Progress Note Date: 06/10/24 Principal diagnosis: fibrocystic breast disease 06-10-24 Principal diagnosis: fibrocystic breast changes Isabel is a 73-year-old white female seen in consultation for Dr. Boucher regarding an abnormal right breast mammogram. She had a bilateral screening mammogram performed on 9722 this revealed some questionable lesions in the right breast and a diagnostic mammogram was recommended. No lesions of concern were noted in the left breast. A right breast diagnostic mammogram was performed on . This revealed a small group of calcifications in the upper outer right breast. Additionally a small group of calcifications have been present previously in the upper outer posterior right breast. The new group of calcifications were felt to be suspicious and stereotactic core biopsy was recommended. She does not feel any new lumps masses or notches of concern in either breast. She has never had any breast biopsies or surgery on her breast. She has not had any recent trauma or infection in her breast. The patient on 07-17-23 underwent a stero biopsy of the right breast. Her pathology showed fibrocystic changes which were benign concordant. This was reviewed by Dr. Pitts. The patient had a repeat right breast mammogram on 02-10-2024, this was benign BI-RADS 2. This was personally reviewed. The patient is recommended to have a bilateral mammogram back on schedule May 2024. She is not complaining of any new lumps masses or nodules of concern in either breast. The patient had a bilateral mammogram on 06-07-24 which was personally reviewed and interpreted and was BIRAD 2 Of any new lumps masses or nodules of concern in either breast. Caffeine: 1 cup/day nicotine:never smoker chocolate: daily BCP: used for about 5 years hormones: none Family History: maternal grandmother: "female" cancer Hormonal History: menarche: 11 , breast fed: no, age at first : 35 menopause: 42 Surgical History: 2 cardiac stints tubaligation foot surgery Medical History: baby aspirin 2 daily vitamin D metaprolol lisonipril statin [place] in past Social History: nicotine: none alcohol: occasional drugs: none - Constitutional Constitutional: Denies chills, Denies fever - EENT Eyes: denies blurred vision, denies pain Ears: deny: decreased hearing, tinnitus Ears, nose, mouth and throat: Denies headache, Denies sore throat - Breasts Breasts: bilateral: as per HPI - Cardiovascular Cardiovascular: Reports shortness of breath, Denies chest pain - Respiratory Respiratory: Denies cough - Gastrointestinal Gastrointestinal: Denies abdominal pain, Denies diarrhea, Denies nausea, Denies vomiting - Genitourinary (Female) Genitourinary: Denies dysuria, Denies hematuria - Menstruation Menstruation: Reports postmenopausal - Musculoskeletal Musculoskeletal: Denies myalgias - Integumentary Integumentary: Denies pruritus, Denies rash - Neurological Neurological: Denies numbness, Denies weakness - Psychiatric Psychiatric: Denies anxiety, Denies depression - Endocrine Endocrine: Denies fatigue, Denies weight change - Hematologic/Lymphatic Comment: none - Allergic/Immunologic Allergic/Immunologic: Reports as per HPI Past Medical History Past Medical History: Hyperlipidemia, Hypertension, Myocardial Infarction ([place]) Additional Past Medical History / Comment(s): OCCASIONAL SWELLING IN JEREMI.ANKLES, weight loss. Last Myocardial Infarction Date:: 03/23/12 History of Any Multi-Drug Resistant Organisms: MRSA Date of last positivie culture/infection: 2016 MDRO Source:: armpits Past Surgical History: Heart Catheterization With Stent, Orthopedic Surgery, Tubal Ligation Additional Past Surgical History / Comment(s): HAD HEART CATH WITH 2 STENTS TO LEFT ANTERIOR DESCENDING ARTERY 03/23/12. RIGHT BUNIONECTONY Past Anesthesia/Blood Transfusion Reactions: No Reported Reaction Date of Last Stent Placement:: 03/23/12 Past Psychological History: No Psychological Hx Reported Smoking Status: Never smoker Past Alcohol Use History: Occasional Past Drug Use History: None Reported - Past Family History Mother Family Medical History: Cancer Additional Family Medical History / Comment(s): Skin Medications and Allergies Home Medications Medication Instructions Recorded Confirmed Type Aspirin 81 mg PO DAILY 04/11/14 07/17/23 History Atorvastatin [Lipitor] 20 mg PO HS 04/11/14 07/17/23 History Lisinopril [Prinivil] 5 mg PO HS 04/11/14 07/17/23 History Metoprolol Tartrate [Lopressor] 25 mg PO HS 04/11/14 07/17/23 History Multivitamins, Thera [Multivitamin 1 tab PO DAILY 09/01/19 07/17/23 History (formulary)] Allergies Allergy/AdvReac Type Severity Reaction Status Date / Time No Known Allergies Allergy Verified 07/17/23 07:40 Objective - Vital Signs Vital signs: Intake & Output 06/09/24 06/10/24 06/10/24 18:59 06:59 18:59 Weight 49.895 kg - Constitutional General appearance: Present: cooperative - EENT Eyes: Present: EOMI ENT: Present: hearing grossly normal - Neck Neck: Present: normal ROM - Respiratory Respiratory: bilateral: CTA - Cardiovascular Heart sounds: normal: S1, S2 - Integumentary Integumentary: Present: normal turgor - Musculoskeletal Musculoskeletal: Present: gait normal - Psychiatric Psychiatric: Present: A&O x's 3, appropriate affect, intact judgment & insight - Additional findings Additional findings: Breast Exam: BRA: 36B inspection: bilateral grade 2 ptosis Palpation: Right breast: Multi positional exam fibrocystic changes no dominant masses or nodules of concern, mile erythema under the right breast which may be a fungal infection Right axilla: No adenopathy of concern Left breast: Multi positional exam fibrocystic changes no dominant masses or nodules of concern Left axilla: No adenopathy of concern Assessment and Plan Assessment: Impression: Benign concordant right breast stereotactic core biopsy [id number] right breast mammogram on 02-10-24 BIRAD 2 bilateral mammogram on 06-07-24 BIRAD 2 personally reviewed and interpreted ? fungal infection under right breast Plan: Repeat bilateral mammogram in May 2025 with appointment at that time nystatin Under right breast as needed follow up sooner any concerns CC: Dr. Boucher
== END ==
LOC: WWCWWP 12:25
PROVIDERS: ATTEND Surgery
DX: R92.8 Other abnormal and inconclusive findings on diagnostic imaging of breast (principal); R92.1 Mammographic calcification found on diagnostic imaging of breast; N60.11 Diffuse cystic mastopathy of right breast; N60.12 Diffuse cystic mastopathy of left breast

== ENCOUNTER → 2024-09-13 | Outpatient (CLI) | payer MEDICARE, BC ==
[2024-09-13 14:58] LABS: HCT 41.4 % (37.2-46.3); HGB 13.7 g/dL (12.0-15.0); MCH 31.3 pg (27.0-32.0); MCHC 33.1 g/dL (32.0-37.0); MCV 94.5 FL (80.0-97.0); Mean Platelet Volume 10.1 FL (9.5-12.2); NRBC Per 100 WBC 0 X 10*3/uL (0.00-0.01); Platelet Count 169 X 10*3/uL (140-440); RBC 4.38 X 10*6/uL (4.10-5.20); RDW 12.4 % (11.5-14.5); WBC 5.87 X 10*3/uL (4.50-10.00)
[2024-09-13 15:16] LABS: Blood Urea Nitrogen 15.9 mg/dL (9.0-27.0); Carbon Dioxide 28.7 mmol/L (21.6-31.8); Chloride 104 mmol/L (96-109); Potassium 3.7 mmol/L (3.5-5.5); Sodium 143 mmol/L (135-145)
== END | disposition home or self-care (01) ==
LOC: LABWHC1 11:13
PROVIDERS: ATTEND Internal Medicine Interventional Cardiology
DX: Z01.812 Encounter for preprocedural laboratory examination (principal); R94.39 Abnormal result of other cardiovascular function study
CPT/HCPCS: 80051; 82565; 84520; 85027

== ENCOUNTER 2024-09-16 07:12 | Day surgery (SDC) | payer MEDICARE, BC ==
[~2024-09-16 07:12] MED LIST changes: +ALPRAZolam 0.25 MG TAB PO PRN; +ALPRAZolam 0.5 MG TAB PO PRN; +HEPARIN SODIUM,PORCINE (1 ML) 2,500 UNIT in SODIUM CHLORIDE 0.9% 250 ML IRRIGATION PRN; +HEPARIN SODIUM,PORCINE 10,000 UNIT in SODIUM CHLORIDE 0.9% 1,000 ML IRRIGATION PRN; -LACTATED RINGERS 1,000 ML IV SCH; -LIDOCAINE 1% 20 ML VIAL (10MG/ML) FOR IV START INTRADERMA PRN; +NITROGLYCERIN SL TABS 0.4 MG TAB SUBLINGUAL PRN
[2024-09-16 07:34] VITALS: RESP 16; TEMP 97.8
[2024-09-16] MEDS: SODIUM CHLORIDE 0.9% 1,000 ML in EMPTY BAG 1 BAG IV SCH (07:43)
[2024-09-16] MEDS: ASPIRIN 325 MG TAB PO STA (07:43)
[2024-09-16] MEDS: IV FLUID CONTINUATION 1,000 ML IV ONE (07:44)
[2024-09-16] MEDS: HEPARIN SODIUM,PORCINE (1 ML) 2,500 UNIT in SODIUM CHLORIDE 0.9% 250 ML IRRIGATION ONE (09:14)
[2024-09-16] MEDS: MIDAZOLAM 2 MG/2 ML VIAL IVP ONE (09:14)
[2024-09-16] MEDS: HEPARIN SODIUM,PORCINE 10,000 UNIT in SODIUM CHLORIDE 0.9% 1,000 ML IRRIGATION ONE (09:14)
[2024-09-16] MEDS: LIDOCAINE 1% INJ 10MG/ML (20 ML MDV) SQ ONE (09:15)
[2024-09-16] MEDS: VERAPAMIL SYRINGE (5 MG/10 ML) INTRAARTER ONE (09:16)
[2024-09-16] MEDS: HEPARIN SODIUM 1,000 UN/ML (10ML VL) IVP ONE (09:20)
[2024-09-16] MEDS: IOPAMIDOL-370 100ML BTL INJ ONE (09:37)
--- NOTE | 2024-09-16 09:54 | P.CARDCATH ---
Date of Procedure: 09/16/24 Description of Procedure: History: This lady has history of CAD prior anterior VA and PCI of mid LAD performed in 2011. She also has hypertension hyperlipidemia and a recent abnormal stress test with some partially reversible defect in the inferolateral wall in addition to a fixed defect in the anterior wall. She was advised cardiac cath after due discussion regarding risks benefits and options. Patient was referred for cardiac catheterization to evaluate for CAD. Procedure Details: The risks, benefits, complications, treatment options, and expected outcomes were discussed with the patient. The patient and/or family concurred with the proposed plan, giving informed consent. Patient was brought to the lab analyst after IV hydration was begun and oral premedication was given. Patient was further sedated with midazolam. Patient was prepped and draped in the usual manner. Under strict aseptic precautions and local anesthesia a 6 [place] introducer was placed in the right radial artery. Using a JL 3/5 and a JR 4/0 catheters I performed coronary angiography and the same JR catheter was used to check LV pressures and LV gram was not performed. After the procedure was completed the sheaths and catheters were all removed. Hemostasis was achieved with TR band. Saturation in the fingers of the right hand was about 94%. Moderate conscious sedation time was 15 minutes. Patient's oxygen saturation hemodynamics and EKG were monitored closely. Findings: Hemodynamics: Left ventricular end-diastolic pressure was 15 mmHg without any gradient across aortic valve Left Main: Long patent disease-free vessel bifurcates into LAD and circumflex LAD: This vessel was previously stented widely patent stented area in the mid LAD is patent no significant disease several septal and diagonal branches are free of significant disease the vessel covers over the inferior apical wall supplies a sizable amount of myocardium. No significant disease diagonal has a 40% mid LAD has a 35% proximal to the stented segment CIRC: Nondominant vessel tortuous gives off 2 obtuse marginal branches minor i rregularities no significant disease RCA: Dominant vessel large in caliber distribution minor irregularities distally bifurcates into PDA and PLV. No significant disease in the dominant RCA Closure Device: TR band Complications: None Estimated Blood Loss: Minimal Impression: Right dominant system slightly elevated filling pressures no gradient widely patent mid LAD stent 35% mid LAD lesion proximal to previous stent 40% diagonal disease. No significant disease in the dominant RCA nondominant circumflex or the left main. Pre Procedure Diagnosis: CAD with prior anterior VA Final Post Procedure Diagnosis: CAD with prior anterior VA Recommendation: Continued medical therapy with risk factor modification will change the metoprolol dosage to 25 mg in the morning and 12 point 5 in the kami phi. May add nitrates after we see her in the office. Complications: None; patient tolerated the procedure well. Disposition: Extended stay unit- hemodynamically stable. Condition: Stable Discharge Disposition: Discharge patient home later on today.
[2024-09-16] MEDS ORDERED: SODIUM CHLORIDE 0.9% 1,000 ML IV SCH (10:00)
[2024-09-16 15:05] VITALS: BP 140/64; PULSE 72
== END 2024-09-16 15:01 | disposition home or self-care (01) ==
LOC: CATHCVL 07:12
PROVIDERS: ATTEND Internal Medicine Interventional Cardiology
DX: I25.10 Atherosclerotic heart disease of native coronary artery without angina pectoris (principal); E78.5 Hyperlipidemia, unspecified; I10 Essential (primary) hypertension; I25.2 Old myocardial infarction; Z79.82 Long term (current) use of aspirin; Z79.899 Other long term (current) drug therapy
CPT/HCPCS: 93458; J2250; J1644 ×3; J2003; Q9967